=== PATIENT | female | born 1975 | race Caucasian/White ===

== ENCOUNTER 2017-03-28 15:48 | Emergency (ER) | payer OTHER ==
[~2017-03-28] VITALS: Ht 154.9 cm; Wt 93.9 kg
[2017-03-28 16:16] VITALS: BP 147/72
[2017-03-28 16:28] LABS: BILIRUBIN,URINE NEGATIVE (NEG); GLUCOSE,URINE NEGATIVE (NEG); NITRITE,URINE NEGATIVE (NEG); PROTEIN,URINE NEGATIVE (NEG-TRACE); UROBILINOGEN,URINE 0.2 mg/dL (0.2 mg/dL)
--- NOTE | 2017-03-28 16:34 | PHYS DOC ---
Past Medical History Past Medical History: CHF, COPD, UTI Past Surgical History: Tubal ligation, Other Additional Past Surgical Histo: R ARM , Alcohol Use: None Drug Use: None Adult General Chief Complaint Chief Complaint: PAIN ON URINATION HPI HPI Patient is a 41 year old female who presents with dysuria. Patient reports 2 day history of dysuria, urinary frequency and urgency, suprapubic abdominal pain , and left flank pain. Denies fevers or chills, nausea, vomiting, diarrhea, vaginal bleeding or discharge. States she saw small amount of blood after urinating this morning. Reports previous history of kidney infection, most recently took Bactrim and completed a course of antibiotics about 10 days ago. Denies history of kidney stones. Also reports itchy red eyes bilaterally with green discharge, x 2 days. She is from [place] and visiting short-term while her is working in [place]. She has a PCP in [place]. Review of Systems Review of Systems Constitutional: Denies fever or chills Eyes: see HPI HENT: Denies nasal congestion or sore throat Respiratory: Denies cough or shortness of breath Cardiovascular: Denies chest pain GI: Reports abdominal pain, denies nausea, vomiting, or diarrhea : Reports dysuria & hematuria Musculoskeletal: Reports flank pain Integument: Denies rash Neurologic: Denies headache Allergies Allergies Allergies Coded Allergies Type Severity Reaction Last Updated Verified No Known Drug Allergies 03/28/17 No Physical Exam Physical Exam Constitutional: obese, no acute distress, non-toxic appearance. HENT: Normocephalic, atraumatic, bilateral external ears normal, oropharynx moist, nose normal. Eyes: PERRL, EOMI, conjunctiva injected bilaterally, no discharge. Neck: supple, no stridor. Cardiovascular: RRR, no murmurs, no edema. Lungs & Thorax: LCTAB, no wheezing, no respiratory distress. Abdomen: soft, no focal tenderness, no RLQ or RUQ tenderness, no rebound/ guarding, no masses or pulsatile masses, nondistended. Skin: Warm, dry, no erythema, no rash. Back: left CVA tenderness. Extremities: No tenderness, no edema. Neurologic: Alert and oriented X 3 Current Patient Data Vital Signs Vital Signs Date Time Temp Pulse Resp B/P (MAP) Pulse Ox O2 Delivery O2 Flow Rate FiO2 5/5/17 16:16 98.1 91 18 96 Room Air 98.1 Lab Values Laboratory Tests Test 03/28/17 15:30 03/28/17 16:12 POC Urine HCG, Qualitative Hcg negative (Negative) Urine Collection Type Unknown Urine Color Yellow Urine Clarity Clear Urine pH 7.0 Urine Specific [place] 1.010 Urine Protein Negative mg/dL (NEG-TRACE) Urine Glucose (UA) Negative mg/dL (NEG) Urine Ketones (Stick) Negative mg/dL (NEG) Urine Blood Negative (NEG) Urine Nitrite Negative (NEG) Urine Bilirubin Negative (NEG) Urine Urobilinogen Dipstick 0.2 mg/dL (0.2 mg/dL) Urine Leukocyte Esterase Negative (NEG) Urine RBC 0 /HPF (0-2) Urine WBC Rare /HPF (0-4) Urine Squamous Epithelial Cells Few /LPF Urine Bacteria Few /HPF (0-FEW) EKG EKG [] Radiology/Procedures Radiology/Procedures [] Course & Med Decision Making Course & Med Decision Making Pertinent Labs and Imaging studies reviewed. (See chart for details) Patient presents with urinary symptoms as above. UA is unremarkable. Recommend rest, by mouth hydration, Tylenol or ibuprofen for pain. Gave her erythromycin ointment for conjunctivitis. Follow-up with primary care physician and eye doctor upon return home to continue. Return to the emergency department for high fever, severe pain, uncontrolled vomiting, any otherwise worsening condition. Discharged home in stable condition. [] Dragon Disclaimer Dragon Disclaimer This electronic medical record was generated, in whole or in part, using a voice recognition dictation system. Departure Departure Impression: Primary Impression: Flank pain Additional Impression: Conjunctivitis Disposition: 01 HOME, SELF-CARE Condition: STABLE Patient Instructions: Conjunctivitis (Viral and Bacterial), Flank Pain, Easy-to -Read Additional Instructions: You were seen in the emergency department today for flank pain. Your urine test was normal. Please rest, drink fluids to stay hydrated, take Tylenol or ibuprofen for pain. You can use the prescribed ointment for eye infection. Follow-up with primary care doctor and eye doctor when you return home. Return to the emergency department for high fever or severe abdominal pain or flank pain, uncontrolled vomiting, any otherwise worsening condition. Problem Qualifiers MULU SIDDIQUI MD March 28, 2017 16:34
[2017-03-28 16:45] LABS: BACTERIA,URINE FEW /HPF (0-FEW); RBC,URINE 0 /HPF (0-2); SQUAMOUS EPITHELIAL CELL,UR FEW /LPF; WBC,URINE RARE /HPF (0-4)
[2017-03-28] MEDS ORDERED: ERYTHROMYCIN 0.5% OPHTH OINTMENT 1GM TUBE. OU ONE (17:00)
== END 2017-03-28 17:16 | disposition home or self-care (01) ==
LOC: ER 15:48
DX: R10.9 Unspecified abdominal pain (principal); H10.9 Unspecified conjunctivitis; R30.0 Dysuria; R35.0 Frequency of micturition; Z87.440 Personal history of urinary (tract) infections; I50.9 Heart failure, unspecified; J44.9 Chronic obstructive pulmonary disease, unspecified; Z98.51 Tubal ligation status
CPT/HCPCS: 81001; 81025; 84703; 99283